=== PATIENT | female | born 1985 | race Two or more races ===

== ENCOUNTER 2023-11-18 08:30 | Emergency (ER) | payer BC, OTHER ==
[~2023-11-18] VITALS: Ht 167.6 cm; Wt 107.0 kg
[2023-11-18 09:05] VITALS: BP 136/82; PULSE 85; RESP 16; TEMP 97.4; O2SAT 98
[2023-11-18] MEDS ORDERED: NAP500T PO (10:13)
[2023-11-18] MEDS ORDERED: LIDO5DIS21 TOP (10:13)
[2023-11-18] MEDS ORDERED: CYCL-837 PO (10:13)
[2023-11-18] MEDS: KETOROLAC TROMETH 60MG/2ML VIAL IM ONE (10:20)
== END 2023-11-18 10:24 | disposition left against medical advice (07) ==
LOC: ER 08:30
DX: S33.5XXA Sprain of ligaments of lumbar spine, initial encounter (principal); Z88.4 Allergy status to anesthetic agent; Z88.6 Allergy status to analgesic agent; X58.XXXA Exposure to other specified factors, initial encounter; Y93.E2 Activity, laundry; Y92.89 Other specified places as the place of occurrence of the external cause; Y99.8 Other external cause status
CPT/HCPCS: 96372; 99283; J1885

== ENCOUNTER 2023-11-24 08:18 | Emergency (ER) | payer BC, MEDICAID ==
[~2023-11-24] VITALS: Ht 167.6 cm; Wt 109.0 kg
[~2023-11-24 08:18] MED LIST: CYCL-837 PO; LIDO5DIS21 TOP; NAP500T PO
[2023-11-24 08:54] VITALS: TEMP 98
[2023-11-24 09:19] LABS: Urine Bacteria FEW /hpf (None Seen); Urine Blood Negative /uL (Negative); Urine Clarity Clear (Clear); Urine Color Yellow (Yellow); Urine Mucus FEW (None Seen); Urine Protein, UAD Negative (Negative); Urine Specific Gravity 1.024 (1.001-1.035); Urine Urobilinogen Normal (Negative); Urine WBC 15 /hpf (0 - 5); Urine pH 5.5 (5.0-9.0)
[2023-11-24] MEDS: KETOROLAC TROMETH 30 MG/ML 1ML VIAL IM ONE (09:52)
[2023-11-24] MEDS: methylPREDNISolone SOD SUCC 125 MG/2 ML VL IM ONE (09:53)
[2023-11-24] MEDS ORDERED: PRED20TA2 PO (10:54)
[2023-11-24] MEDS ORDERED: BACDST PO (10:54)
[2023-11-24] MEDS ORDERED: IBUP1TAB5 PO (10:54)
[2023-11-24 11:00] VITALS: O2SAT 100
[2023-11-24] MEDS: MORPHINE SULFATE 4 MG/ML SYR/VIAL IM ONE (11:19)
[2023-11-24 11:57] VITALS: BP 114/68; PULSE 77; RESP 18
[2023-11-24] MEDS ORDERED: HYDR-4902 PO (12:10)
== END 2023-11-24 12:22 | disposition home or self-care (01) ==
LOC: ER 08:18
DX: S33.5XXA Sprain of ligaments of lumbar spine, initial encounter (principal); R30.0 Dysuria; J45.909 Unspecified asthma, uncomplicated; Z79.1 Long term (current) use of non-steroidal anti-inflammatories (NSAID); Z79.899 Other long term (current) drug therapy; Z98.890 Other specified postprocedural states; X58.XXXA Exposure to other specified factors, initial encounter; Y93.89 Activity, other specified; Y92.89 Other specified places as the place of occurrence of the external cause; Y99.8 Other external cause status
CPT/HCPCS: 72131; 81001; 81025; 87086; 96372; 99285; J1885; J2270; J2919